=== PATIENT | male | born 1935 | race Caucasian/White ===

== ENCOUNTER 2018-01-22 11:21 | Emergency (ER) | payer MEDICARE, OTHER ==
[2018-01-22 11:59] VITALS: BP 162/67
--- NOTE | 2018-01-22 12:26 | UC ---
Lower Extremity/Ankle HPI - HPI Summary HPI Summary: He walks with a walker. in the middle of the night he awoke and went to the [place]. He cannot remember if he stumbled or if the knee gave out. Either way, he hit his right knee and now it hurts more with bending it. - History of Current Complaint Chief Complaint: UCLowerExtremity Stated Complaint: S/P FALL RIGHT KNEE PAIN Time Seen by Provider: 01/22/18 11:37 Hx Obtained From: Patient Onset/Duration: Lasting Hours Severity Initially: Moderate Severity Currently: Moderate Pain Intensity: 4 Aggravating Factor(s): Standing, Ambulation Alleviating Factor(s): Rest, Elevation Able to Bear Weight: Yes - Allergies/Home Medications Allergies/Adverse Reactions: Allergies Allergy/AdvReac Type Severity Reaction Status Date / Time No Known Allergies Allergy Verified 01/22/18 11:42 Home Medications: Home Medications Atorvastatin* [Lipitor*] 10 mg PO EVERY OTHER DAY 01/22/18 [History Confirmed ] Metoprolol Succinate XL TAB* [Toprol XL TAB*] 50 mg PO BID 01/22/18 [History Confirmed 01/22/18] Nitroglycerin [Nitrostat] 0.3 mg SL SEE INSTRUCTIONS PRN 01/22/18 [History Confirmed 01/22/18] Rivaroxaban TAB(*) [Xarelto 20 mg] 20 mg PO QPM 01/22/18 [History Confirmed 06/04] Sitagliptin Phosphate [Januvia] 50 mg PO DAILY 01/22/18 [History Confirmed 01/22] Valsartan [Valsartan 320 MG] 320 mg PO DAILY 01/22/18 [History Confirmed ] PMH/Surg Hx/FS Hx/Imm Hx Previously Healthy: No - HTN. Cardiovascular History: Hypertension Other History Of: Anticoagulant Therapy - aggrenox - Surgical History Surgical History: Yes Surgery Procedure, Year, and Place: kidney stones, left knee surgery~2014 - Family History Known Family History: Positive: Other - No related knee history in the family. - Social History Lives: With Family Alcohol Use: Occasionally Substance Use Type: None Smoking Status (MU): Former Smoker When Did the Patient Quit Smoking/Using Tobacco: 1984 Review of Systems Musculoskeletal: Arthralgia All Other Systems Reviewed And Are Negative: Yes Physical Exam Triage Information Reviewed: Yes Appearance: Well-Appearing, Thin Vital Signs: Initial Vital Signs Temp 98.3 F 01/22/18 11:42 Pulse 104 01/22/18 11:42 Resp 18 01/22/18 11:42 BP 162/67 01/22/18 11:42 Pulse Ox 97 01/22/18 11:42 Vital Signs Reviewed: Yes Eyes: Positive: Conjunctiva Clear ENT: Positive: Normal ENT inspection Neck: Positive: Supple, Nontender, No Lymphadenopathy Respiratory: Positive: Lungs clear, No accessory muscle use. Negative: Respiratory distress Cardiovascular: Positive: RRR Abdomen Description: Positive: Soft. Negative: Distended, Guarding Musculoskeletal Exam: Other - Right knee not red or hot. THere is a moderate effusion. There is no laxity with valgus or varus stress. Neg anterior drawer. there is patella tenderness but no joint line tenderness.no ankle tendeness. No calf tenderness. Neurological: Negative: Fatigued Psychological Exam: Other Psychological: Positive: Age Appropriate Behavior Skin Exam: Other - No bruising or abrasions. Skin: Negative: rashes Diagnostics - Radiology No standard instances Xray Interpretation: No Acute Changes Radiology Interpretation Completed By: Radiologist Lower Extremity Course/Dx - Course Course Of Treatment: Knee effusion may suggest flare up of arthritis or meniscal tear. There is no laxity on exam or suggestion of ligament tear. - Differential Dx/Diagnosis Provider Diagnoses: knee contusion. knee effusion. Discharge - Discharge Plan Condition: Good Disposition: HOME Patient Education Materials: Knee Pain (ED), Swollen Knee Joint (ED) Referrals: Juan Carlos ROACH,Goldy Coronel [Primary Care Provider] - If Needed Additional Instructions: Tylenol and renzo wrap. REturn to pcp if not better in 5-7 days.
--- NOTE | 2018-01-22 13:00 | RAD ---
INDICATION: Right knee injury. TECHNIQUE: 2 views of the right knee were obtained. FINDINGS: There is anterior soft tissue swelling. The bones are normal alignment and appear osteopenic. No joint effusion or fracture is seen. IMPRESSION: NO EVIDENCE FOR FRACTURE, IF THE PATIENT'S SYMPTOMS PERSIST RECOMMEND FOLLOW-UP IMAGING.
== END 2018-01-22 13:16 | disposition home or self-care (01) ==
LOC: UCCORT 11:21
DX: S80.01XA Contusion of right knee, initial encounter (principal); W19.XXXA Unspecified fall, initial encounter; Y93.01 Activity, walking, marching and hiking; Y92.002 Bathroom of unspecified non-institutional (private) residence as the place of occurrence of the external cause; Z79.01 Long term (current) use of anticoagulants; I10 Essential (primary) hypertension; Z87.891 Personal history of nicotine dependence
CPT/HCPCS: 99211; G0463